=== PATIENT | female | born 1965 | race Caucasian/White ===

== ENCOUNTER 2023-04-29 10:01 | Emergency (ER) | payer OTHER, SELFPAY ==
[2023-04-29 10:07] VITALS: BP 129/77
[2023-04-29] MEDS: TYLENOL 1000 MG PO (10:58)
[2023-04-29] MEDS: ZOFRAN ODT (ORALLY DISINTEGRATING) 4 MG PO (11:01)
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
[2023-04-29] MEDS: MOTRIN 600 MG PO (12:09)
== END 2023-04-29 12:47 | disposition home or self-care (01) ==
LOC: EMR 10:01
PROVIDERS: EMERGENCY PHYSICIAN Emergency Medicine; FAMILY PHYSICIAN Family Medicine
DX: S06.0XAA Concussion with loss of consciousness status unknown, initial encounter (principal); S16.1XXA Strain of muscle, fascia and tendon at neck level, initial encounter; V49.40XA Driver injured in collision with unspecified motor vehicles in traffic accident, initial encounter
CPT/HCPCS: 99284; 70450; 72125

== ENCOUNTER → 2023-07-10 09:39 | Outpatient (REF) | payer OTHER, SELFPAY | LOC: HWWDC 09:39 | PROVIDERS: ATTENDING PHYSICIAN Obstetrics & Gynecology Gynecology; FAMILY PHYSICIAN Family Medicine | DX: Z12.31 Encounter for screening mammogram for malignant neoplasm of breast (principal) | CPT/HCPCS: 77063; 77067 ==